=== PATIENT | female | born 1950 | race Two or more races ===

== ENCOUNTER 2023-12-26 20:18 | Emergency (ER) | payer MEDICARE, OTHER ==
[~2023-12-26] VITALS: Ht 162.6 cm; Wt 96.5 kg
[2023-12-26] MEDS: BACITRACIN TOP OINT 1 UD PKG TOP ONE ×2 (21:45→21:47)
[2023-12-27 01:00] VITALS: BP 195/86; PULSE 61; RESP 13; TEMP 97.8; O2SAT 97
== END 2023-12-27 01:32 | disposition home or self-care (01) ==
LOC: ER 20:18
DX: S01.81XA Laceration without foreign body of other part of head, initial encounter (principal); W18.09XA Striking against other object with subsequent fall, initial encounter; Y93.89 Activity, other specified; Y92.89 Other specified places as the place of occurrence of the external cause; Y99.8 Other external cause status
CPT/HCPCS: 12011; 70450